=== PATIENT | male | born 1985 | race Caucasian/White ===

== ENCOUNTER 2016-05-25 19:28 | Emergency (ER) | payer OTHER ==
[2016-05-25] MEDS ORDERED: HYDROcodone/ACETAMIN 5-325 MG* 1 TAB PO ONE ×2 (20:16→20:48)
--- NOTE | 2016-05-25 20:17 | UC ---
Shoulder Pain HPI - HPI Summary HPI Summary: 30 yo male with right shoulder pain which started this afternoon slipped and fell landing of his right shoulder he is right handed - History of Current Complaint Chief Complaint: UCUpperExtremity Stated Complaint: RIGHT HIP/SHOULDER PAIN-FALL Time Seen by Provider: 05/25/16 20:10 Hx Obtained From: Patient Onset/Duration: Sudden Onset, Lasting Hours Timing: Constant Severity Initially: Severe Severity Currently: Severe Location Of Pain: Is Diffuse Pain Intensity: 9 Pain Scale Used: 0-10 Numeric Character: Aching, Throbbing Aggravating Factor(s): Movement, Lifting, Flexion, Extension, Internal Rotation , External Rotation, Abduction, Nothing Alleviating Factor(s): Rest Related History: Dominant Hand Right - Allergies/Home Medications Allergies/Adverse Reactions: Allergies Allergy/AdvReac Type Severity Reaction Status Date / Time Sulfa Drugs Allergy Severe Hives Verified 08/21/15 15:32 Home Medications: Home Medications Carisoprodol [Soma] 350 mg PO TID PRN 05/25/16 [History Confirmed 05/25/16] Diazepam TAB(*) [Valium TAB(*)] 10 mg PO QID 05/25/16 [History Confirmed ] Gabapentin CAP(*) [Neurontin 300 CAP(*)] 600 mg PO BID 05/25/16 [History Confirmed 05/25/16] Quetiapine Fumarate [Seroquel Xr] 600 mg PO BID 05/25/16 [History Confirmed ] PMH/Surg Hx/FS Hx/Imm Hx Previously Healthy: Yes - "FIBRO" Psychological History Of: Reports: Anxiety, Depression - Surgical History Surgical History: Yes Surgery Procedure, Year, and Place: L testicle surgery, [place] - Family History Known Family History: Positive: Cardiac Disease, Hypertension, Diabetes - Social History Alcohol Use: None Substance Use Type: None, Marijuana Substance Use Comment - Amount & Last Used: daily usage Smoking Status (MU): Heavy Every Day Tobacco Smoker Type: Cigarettes, Smokeless Tobacco Amount Used/How Often: 1/2 ppd Length of Time of Smoking/Using Tobacco: 15 yrs Cessation Counseling: Patient Advised to Stop Review of Systems Constitutional: Negative Skin: Negative Eyes: Negative ENT: Negative Respiratory: Negative Cardiovascular: Negative Gastrointestinal: Negative Genitourinary: Negative Motor: Negative Neurovascular: Negative Musculoskeletal: Arthralgia Neurological: Negative Psychological: Negative All Other Systems Reviewed And Are Negative: Yes Physical Exam Triage Information Reviewed: Yes Appearance: Well-Appearing, Well-Nourished, Pain Distress Vital Signs: Initial Vital Signs Temp 98.7 F 05/25/16 19:43 Pulse 114 05/25/16 19:43 Resp 16 05/25/16 19:43 BP 149/76 05/25/16 19:43 Pulse Ox 97 05/25/16 19:43 Vital Signs Reviewed: Yes Eyes: Positive: Conjunctiva Clear ENT: Positive: Hearing grossly normal. Negative: Nasal congestion, Nasal drainage, Trismus, Muffled/hoarse voice Neck: Positive: Supple, Nontender Respiratory: Positive: Lungs clear, Normal breath sounds, No respiratory distress, No accessory muscle use Cardiovascular: Positive: RRR, No Murmur, Tachycardia Bowel Sounds: Positive: Present Musculoskeletal: Positive: ROM Limited @ - right shoulder Neurological Exam: Normal Skin Exam: Normal Shoulder Course/Dx - Course Course Of Treatment: advised to get rechecked in case he has a partial rotator cuff tear - Differential Dx/Diagnosis Provider Diagnoses: right shoulder sprain Discharge - Discharge Plan Condition: Stable Disposition: HOME Prescriptions: Hydrocodone/Acetamin 10/325(NF [[place] 10/325 (NF)] 1 tab PO Q6H PRN #15 tab MDD 4 PRN Reason: Pain Patient Education Materials: Shoulder Pain (ED) Referrals: Jona Kulkarni MD [Primary Care Provider] - As Soon As Possible Additional Instructions: sling ice twice daily don't take narcotic and drive continue ibuprofen you BP was slightly elevated (probably due to pain) 149/76 Images Front/Back of Body, Lg (Weber): 1 - pain 2 - tender ac joint. pain with internal and external rotation and abduction
--- NOTE | 2016-05-25 20:48 | RAD ---
INDICATION: Right shoulder injury. TECHNIQUE: 3 views of the right shoulder were obtained. FINDINGS: The bones are in normal alignment. No fracture is seen. Joint spaces appear maintained. IMPRESSION: NO EVIDENCE OF FRACTURE.
[2016-05-25 21:11] VITALS: BP 124/94
== END 2016-05-25 21:11 | disposition home or self-care (01) ==
LOC: UCCORT 19:28
DX: S43.401A Unspecified sprain of right shoulder joint, initial encounter (principal); W01.0XXA Fall on same level from slipping, tripping and stumbling without subsequent striking against object, initial encounter; Y93.9 Activity, unspecified; Y92.9 Unspecified place or not applicable; Z88.2 Allergy status to sulfonamides; F12.90 Cannabis use, unspecified, uncomplicated; F17.210 Nicotine dependence, cigarettes, uncomplicated
CPT/HCPCS: 99213; G0463

== ENCOUNTER 2016-05-28 12:41 | Emergency (ER) | payer OTHER ==
[2016-05-28 13:09] VITALS: BP 128/74
--- NOTE | 2016-05-28 13:21 | UC ---
Shoulder Pain HPI - History of Current Complaint Chief Complaint: UCUpperExtremity Stated Complaint: RIGHT SHOULDER PAIN Time Seen by Provider: 05/28/16 13:09 Hx Obtained From: Patient Onset/Duration: Sudden Onset - Fell, landed on the right shoulder and the leg., Still Present Timing: Constant Severity Initially: Severe Severity Currently: Severe Location Of Pain: Is Discrete @ - the right shoulder cap radiating up into the neck. Character: Sharp, Burning Aggravating Factor(s): Movement, Lifting Alleviating Factor(s): Rest - with sling and pain meds. - Risk Factors Non-Orthopedic Risk Factor: Negative DVT Risk Factors: Smoking, Recent Trauma Septic Arthritis Risk Factor: Negative - Allergies/Home Medications Allergies/Adverse Reactions: Allergies Allergy/AdvReac Type Severity Reaction Status Date / Time Sulfa Drugs Allergy Severe Hives Verified 05/28/16 13:02 Home Medications: Home Medications Ibuprofen TAB* [Advil TAB*] 600 mg PO Q6H PRN 05/28/16 [History Confirmed ] PMH/Surg Hx/FS Hx/Imm Hx Psychological History Of: Reports: Anxiety, Depression, Bipolar Disorder - Surgical History Surgical History: Yes Surgery Procedure, Year, and Place: Appenectomy, 2014, [place]; Left Testicle Verocele, 2011, [place] - Family History Known Family History: Positive: Unknown, Cardiac Disease, Hypertension, Diabetes - Social History Occupation: Unemployed, Disabled Lives: With Family - with Girlfriend Alcohol Use: None Substance Use Type: Marijuana Substance Use Comment - Amount & Last Used: Nightly Smoking Status (MU): Heavy Every Day Tobacco Smoker Type: Cigarettes, Smokeless Tobacco Amount Used/How Often: 1/2 ppd Length of Time of Smoking/Using Tobacco: 15 yrs Review of Systems Musculoskeletal: Arthralgia Neurological: Paresthesia All Other Systems Reviewed And Are Negative: Yes Physical Exam Triage Information Reviewed: Yes Appearance: Well-Appearing, Well-Nourished, Pain Distress - with any right shoulder movement. Vital Signs: Initial Vital Signs Temp 98 F 05/28/16 12:59 Pulse 122 05/28/16 12:59 Resp 18 05/28/16 12:59 BP 128/74 05/28/16 12:59 Pulse Ox 98 05/28/16 12:59 Vital Signs Reviewed: Yes Eyes: Positive: Conjunctiva Clear Neck: Negative: Supple - pain with movement to the right Respiratory: Positive: Lungs clear Cardiovascular Exam: Normal Cardiovascular: Positive: Tachycardia Musculoskeletal: Positive: ROM Limited @ - Right shoulder, decreased flexion/ abduction. Tender over the AC joint. Neurological: Positive: Other: - pinprick increased in the C3 dermatome on the right Psychological: Positive: Other: - ? hypomanic. Skin Exam: Normal Shoulder Course/Dx - Differential Dx/Diagnosis Differential Diagnosis/HQI/PQRI: AC Separation, Sprain, Strain Provider Diagnoses: AC sprain. Cervical radiculopathy Discharge - Discharge Plan Condition: Stable Disposition: HOME Prescriptions: Gabapentin TAB(NF) [Neurontin 600 mg TAB(NF)] 600 mg PO TID #90 tab Hydrocodone/Acetamin 10/325(NF [[place] 10/325 (NF)] 1 tab PO Q6H PRN #15 tab MDD 4 PRN Reason: Pain Patient Education Materials: Acromioclavicular Separation (ED), Cervical Radiculopathy (ED), Gabapentin (By mouth), Ketorolac (By injection) Referrals: Jona Kulkarni MD [Primary Care Provider] - Luis Miguel Smith MD [Medical Doctor] - 2 Days (follow up on AC sprain and ? nerve injury.)
[2016-05-28] MEDS ORDERED: Ketorolac INJ* 60 MG/2 ML VIAL IM ONE (13:22)
[2016-05-28] MEDS ORDERED: Ketorolac INJ* 60 MG/2 ML VIAL ONE (13:24)
--- NOTE | 2016-05-28 13:54 | RAD ---
Indication: C3 radiculopathy. 5 views of the cervical spine demonstrates straightening of the normal lordosis. Disc spaces all well-preserved. Pedicles appear intact. IMPRESSION: Unremarkable cervical spine series.
== END 2016-05-28 14:12 | disposition home or self-care (01) ==
LOC: UCCORT 12:41
DX: S43.51XA Sprain of right acromioclavicular joint, initial encounter (principal); W19.XXXA Unspecified fall, initial encounter; Y93.9 Activity, unspecified; Y92.9 Unspecified place or not applicable; M54.12 Radiculopathy, cervical region; Z88.2 Allergy status to sulfonamides; F12.90 Cannabis use, unspecified, uncomplicated; F17.210 Nicotine dependence, cigarettes, uncomplicated
CPT/HCPCS: 72050; 96372; 99212; G0463; J1885

== ENCOUNTER 2016-07-03 15:26 | Emergency (ER) | payer OTHER ==
--- NOTE | 2016-07-03 15:58 | UC ---
UC General HPI - HPI Summary HPI Summary: complaint of fibromyalgia pain started approx 2-3 days ago following doing some housecleaning both are arms are very sore since flareup see Dr Kulkarni usually comes to urgent care for flareups taking gabapentin, ,soma for muscle spasms, without any relief taking ibuprofen 800 mg PO which he took 6 hours ago without relief denies numbness and tingling in BUE - History of Current Complaint Chief Complaint: UCUpperExtremity Stated Complaint: BILATERAL HAND SWELLING Time Seen by Provider: 07/03/16 15:49 Hx Obtained From: Patient - Allergy/Home Medications Allergies/Adverse Reactions: Allergies Allergy/AdvReac Type Severity Reaction Status Date / Time Sulfa Drugs Allergy Severe Hives Verified 07/03/16 15:48 PMH/Surg Hx/FS Hx/Imm Hx Previously Healthy: Yes Psychological History Of: Reports: Anxiety, Depression, Bipolar Disorder - Surgical History Surgical History: Yes Surgery Procedure, Year, and Place: Appenectomy, 2014, [place]; Left Testicle Verocele, 2011, [place] - Family History Known Family History: Positive: Unknown, Cardiac Disease, Hypertension, Diabetes - Social History Occupation: Disabled Lives: With Family Alcohol Use: None Substance Use Type: Marijuana Substance Use Comment - Amount & Last Used: Nightly Smoking Status (MU): Heavy Every Day Tobacco Smoker Type: Cigarettes, Smokeless Tobacco Amount Used/How Often: 1/2 ppd Length of Time of Smoking/Using Tobacco: 15 yrs Cessation Counseling: Patient Advised to Stop - Immunization History Most Recent Influenza Vaccination: 2017 Review of Systems Constitutional: Negative Skin: Negative Eyes: Negative ENT: Negative Respiratory: Negative Cardiovascular: Negative Gastrointestinal: Negative Genitourinary: Negative Motor: Negative Neurovascular: Negative Musculoskeletal: Other: - pain in both arms and hands Neurological: Negative Psychological: Negative All Other Systems Reviewed And Are Negative: Yes Physical Exam Triage Information Reviewed: Yes Appearance: No Pain Distress, Well-Nourished Vital Signs: Initial Vital Signs Temp 99.0 F 07/03/16 15:42 Pulse 123 07/03/16 15:42 Resp 18 07/03/16 15:42 BP 136/96 07/03/16 15:42 Pulse Ox 99 07/03/16 15:42 Vital Signs Reviewed: Yes Eyes: Positive: Conjunctiva Clear ENT: Positive: Pharynx normal, TMs normal. Negative: Nasal congestion Neck: Positive: No Lymphadenopathy Respiratory: Positive: Lungs clear, Normal breath sounds, No respiratory distress, No accessory muscle use Cardiovascular: Positive: RRR, No Murmur, Pulses Normal Abdomen Description: Positive: Nontender, Soft Bowel Sounds: Positive: Present Musculoskeletal: Positive: Strength Intact, No Edema Neurological: Positive: Alert, Muscle Tone Normal Psychological Exam: Normal Skin Exam: Normal Course/Dx - Course Course Of Treatment: exam completed- ISTOPchecked- last rx for limited vicodin . consistent use of ambien, valium and soma. discussed with Dr Bah giving some tramadol for temporary pain relief until he can contact Dr Kulkarni tomorrow. - Differential Dx - Multi-Symptom Provider Diagnoses: fibromyalgia - Physician Notifications Discussed Patient Care With: Dr Bah Time Discussed With Above Provider: 16:17 Discharge - Discharge Plan Condition: Stable Disposition: HOME Prescriptions: traMADol TAB* [Ultram*] 50 mg PO Q6HR PRN #8 tab MDD 4 PRN Reason: Pain Patient Education Materials: Fibromyalgia (ED) Referrals: Jona Kulkarni MD [Primary Care Provider] - Additional Instructions: Increase fluids and rest Take tramadol for pain relief Please review your discharge instructions. If your symptoms do not improve please call your primary care provider or return to urgent care. Your blood pressure is pre-hypertensive reading. Please contact your primary care provider within 1 day -4 weeks for further evaluation
[2016-07-03 16:11] VITALS: BP 136/96
[2016-07-03] MEDS ORDERED: Ketorolac INJ* 60 MG/2 ML VIAL IM ONE (16:13)
== END 2016-07-03 16:41 | disposition home or self-care (01) ==
LOC: UCCORT 15:26
DX: M79.7 Fibromyalgia (principal); F41.8 Other specified anxiety disorders; F31.9 Bipolar disorder, unspecified; Z88.2 Allergy status to sulfonamides; F12.90 Cannabis use, unspecified, uncomplicated; F17.210 Nicotine dependence, cigarettes, uncomplicated
CPT/HCPCS: 96372; 99212; G0463; J1885

== ENCOUNTER 2016-08-13 15:48 | Emergency (ER) | payer OTHER ==
[2016-08-13 16:32] VITALS: BP 126/82
--- NOTE | 2016-08-13 17:06 | UC ---
Back Pain HPI - HPI Summary HPI Summary: home painting his deck today and "knees buckled", reports is having pain in his "lumbar back, "it has happened before". States that he has fibromyalgia and see's Dr Kulkarni. Took soma this morning but ahsnt taken any ibuporfen or any other meds for it. his mom who has MS but lidocaine cream on it. Denies radiation into buttocks or legs. no w/n/t into legs. No saddle anesthesia. No loss of bowel or bladder. He asks for ibuprofen 800mgs. states he is not here to get pain meds. -His GF was here to be seen in a different room. - History of Current Complaint Chief Complaint: UCBackPain Stated Complaint: LOW BACK PAIN Time Seen by Provider: 08/13/16 17:00 - Allergies/Home Medications Allergies/Adverse Reactions: Allergies Allergy/AdvReac Type Severity Reaction Status Date / Time Sulfa Drugs Allergy Severe Hives Verified 08/13/16 16:32 Home Medications: Home Medications Gabapentin TAB(NF) [Neurontin 600 mg TAB(NF)] 600 mg PO BID 08/13/16 [History Confirmed 08/13/16] LORazepam TAB(*) [Ativan 0.5 MG TAB (*)] 0.5 mg PO TID PRN 08/13/16 [History Confirmed 08/13/16] QUEtiapine TAB* [SEROquel TAB*] 50 mg PO DAILY PRN 08/13/16 [History Confirmed 08/13/16] PMH/Surg Hx/FS Hx/Imm Hx Previously Healthy: Yes GI/ History: Other - rececnt completion of 12 wk Hep C treatment Other GI/ History: recent completion Hep C treatment, resolved LFTs he reports. Denies PUD/CKD - Surgical History Surgical History: Yes Surgery Procedure, Year, and Place: Appenectomy, 2015, [place]; Left Testicle Verocele, 2012, [place] - Family History Known Family History: Positive: Unknown, Cardiac Disease, Hypertension, Diabetes - Social History Alcohol Use: Rare Substance Use Type: Marijuana Substance Use Comment - Amount & Last Used: Nightly Smoking Status (MU): Heavy Every Day Tobacco Smoker Type: Cigarettes, Smokeless Tobacco Amount Used/How Often: 1/2 ppd Length of Time of Smoking/Using Tobacco: 15 yrs - Immunization History Most Recent Influenza Vaccination: 2016 Review of Systems Constitutional: Negative Skin: Negative Eyes: Negative ENT: Negative Respiratory: Negative Cardiovascular: Negative Gastrointestinal: Negative Genitourinary: Negative Motor: Decreased ROM, Other - pain and stiffness in low back. Neurovascular: Negative Musculoskeletal: Negative Neurological: Negative Psychological: Negative All Other Systems Reviewed And Are Negative: Yes Physical Exam Triage Information Reviewed: Yes Appearance: Well-Nourished, Pain Distress Vital Signs: Initial Vital Signs Temp 98.6 F 08/13/16 16:26 Pulse 102 08/13/16 16:26 Resp 17 08/13/16 16:26 BP 126/82 08/13/16 16:26 Pulse Ox 99 08/13/16 16:26 Vital Signs Reviewed: Yes Eye Exam: Normal ENT Exam: Normal Neck exam: Normal Neck: Positive: Supple, Nontender, No Lymphadenopathy Respiratory Exam: Normal Respiratory: Positive: Lungs clear, Normal breath sounds Cardiovascular Exam: Normal Cardiovascular: Positive: RRR, No Murmur, Pulses Normal Abdominal Exam: Normal Musculoskeletal: Positive: No Edema, ROM Limited @ - lubar spine with flexion, extension and b/l rotation., Other: - mild tenderness b/l lumbar areas. no tenderness along lumbar spine. SLR neg b/l. + 1 patellar equal and symmetrical b /l legs. Psychological Exam: Normal Skin Exam: Normal Back Pain Course/Dx - Course Course Of Treatment: B/L low back muscle spasms. ISTOP done and cc'd to chart. tramadol given 06/27. uses some and diazepam, zolpidem and ativan regular fills. - Differential Dx/Diagnosis Differential Diagnosis/HQI/PQRI: Herniated Disc, Strain, Sprain Provider Diagnoses: B/L lumbar strain Discharge - Discharge Plan Condition: Stable Disposition: HOME Prescriptions: Ibuprofen TAB* [Motrin TAB* 600 MG] 600 mg PO Q8H PRN #10 tab PRN Reason: Pain Patient Education Materials: Muscle Strain (ED) Referrals: Jona Kulkarni MD [Primary Care Provider] - 2 Days Additional Instructions: Make sure to get rest and ice your back, 20 mins on/off with a towel barrier between the ice and your skin.
[2016-08-13] MEDS ORDERED: Ibuprofen TAB* 600 MG PO ONE (17:15)
== END 2016-08-13 17:42 | disposition home or self-care (01) ==
LOC: UCCORT 15:48
DX: S39.012A Strain of muscle, fascia and tendon of lower back, initial encounter (principal); X58.XXXA Exposure to other specified factors, initial encounter; Y93.89 Activity, other specified; Y92.009 Unspecified place in unspecified non-institutional (private) residence as the place of occurrence of the external cause; Z88.2 Allergy status to sulfonamides; F17.210 Nicotine dependence, cigarettes, uncomplicated
CPT/HCPCS: 99212; A9270-GY; G0463

== ENCOUNTER 2016-08-23 12:26 | Emergency (ER) | payer OTHER ==
[2016-08-23] MEDS ORDERED: Ibuprofen TAB* 400 MG PO ONE (12:54)
--- NOTE | 2016-08-23 13:02 | UC ---
Dental HPI - HPI Summary HPI Summary: Patient has had dental pain for the last 3 days, poor dentition and fractured teeth - History of Current Complaint Stated Complaint: DENTAL COMPLAINT Time Seen by Provider: 08/23/16 12:40 Hx Obtained From: Patient Onset/Duration: Sudden Onset, Lasting Days Severity: Severe Aggravating: Chewing Alleviating: Nothing Related History: Previous Dental Care on Same Tooth, Swelling - Allergies/Home Medications Allergies/Adverse Reactions: Allergies Allergy/AdvReac Type Severity Reaction Status Date / Time Sulfa Drugs Allergy Severe Hives Verified 08/13/16 16:32 PMH/Surg Hx/FS Hx/Imm Hx Previously Healthy: Yes - Surgical History Surgical History: Yes Surgery Procedure, Year, and Place: Appenectomy, 2014, [place]; Left Testicle Verocele, 2012, [place] - Family History Known Family History: Positive: Unknown, Cardiac Disease, Hypertension, Diabetes - Social History Alcohol Use: Rare Substance Use Type: Marijuana Substance Use Comment - Amount & Last Used: Nightly Smoking Status (MU): Heavy Every Day Tobacco Smoker Type: Cigarettes, Smokeless Tobacco Amount Used/How Often: 1/2 ppd Length of Time of Smoking/Using Tobacco: 15 yrs - Immunization History Most Recent Influenza Vaccination: 2017 Review of Systems Constitutional: Negative Skin: Negative Eyes: Negative ENT: Dental Pain, Ear Ache Respiratory: Negative Cardiovascular: Negative Gastrointestinal: Negative Genitourinary: Negative Motor: Negative Neurovascular: Negative Musculoskeletal: Negative Neurological: Negative Psychological: Negative All Other Systems Reviewed And Are Negative: Yes Physical Exam Triage Information Reviewed: Yes Appearance: Well-Nourished, Ill-Appearing, Pain Distress Vital Signs Reviewed: Yes Eye Exam: Normal ENT: Positive: TM bulging Dental: Positive: Gross Decay/Caries @, Dental Fracture @, Cellulitis @, Cervical Lymphadenopathy Neck exam: Normal Neck: Positive: Supple, Nontender, Enlarged Nodes @ - right cervical and sumbandibular Respiratory Exam: Normal Respiratory: Positive: Chest non-tender, Lungs clear, Normal breath sounds Cardiovascular Exam: Normal Abdominal Exam: Normal Bowel Sounds: Positive: Present Musculoskeletal Exam: Normal Neurological Exam: Normal Psychological Exam: Normal Skin Exam: Normal Dental Complaint Course/Dx - Course Course Of Treatment: hx obtained, exam performed ,meds reviewed, treated for dental infection and pain, he does have an upcoming dental appointment - Differential Dx/Diagnosis Provider Diagnoses: dental caries. lymphadenopathy. dental infection Discharge - Discharge Plan Condition: Stable Disposition: HOME Prescriptions: Amoxicillin/Clavulanate TAB* [Augmentin TAB 875*] 875 mg PO BID #20 tab Ibuprofen TAB* [Motrin TAB* 800 MG] 800 mg PO Q6H #28 tab traMADol TAB* [Ultram*] 50 mg PO Q12H PRN #6 tab MDD 2 tabs PRN Reason: Pain Patient Education Materials: Dental Abscess (ED) Additional Instructions: 1. take the medication as prescribed. 2. Increase your fluid intake and continue with your mouth rinses. 3. Follow up with your dentist at your upcoming appointment.
[2016-08-23] MEDS ORDERED: Naproxen TAB* 250 MG PO ONE (13:08)
[2016-08-23 13:29] VITALS: BP 125/88
== END 2016-08-23 13:44 | disposition home or self-care (01) ==
LOC: UCCORT 12:26
DX: K02.9 Dental caries, unspecified (principal); K04.7 Periapical abscess without sinus; R59.1 Generalized enlarged lymph nodes; Z88.2 Allergy status to sulfonamides; F17.210 Nicotine dependence, cigarettes, uncomplicated
CPT/HCPCS: 99212; A9270-GY; G0463

== ENCOUNTER 2016-09-23 11:05 | Emergency (ER) | payer OTHER ==
--- NOTE | 2016-09-23 11:09 | UC ---
Throat Pain/Nasal Zaid HPI - HPI Summary HPI Summary: 30 YEAR OLD MALE PRESENTS WITH COMPLAINS OF SORE THROAT AND SWOLLEN GLANDS. - History of Current Complaint Stated Complaint: SORE THROAT Time Seen by Provider: 09/23/16 11:09 - Allergies/Home Medications Allergies/Adverse Reactions: Allergies Allergy/AdvReac Type Severity Reaction Status Date / Time Sulfa Drugs Allergy Severe Hives Verified 09/23/16 11:11 Home Medications: Home Medications clonazePAM TAB(*) [Klonopin TAB(*)] 0.5 mg PO TID 09/23/16 [History Confirmed ] PMH/Surg Hx/FS Hx/Imm Hx - Surgical History Surgical History: Yes Surgery Procedure, Year, and Place: Appenectomy, 2014, [place]; Left Testicle Verocele, 2011, [place] - Family History Known Family History: Positive: Unknown, Cardiac Disease, Hypertension, Diabetes - Social History Alcohol Use: Rare Substance Use Type: Marijuana Substance Use Comment - Amount & Last Used: Nightly Smoking Status (MU): Heavy Every Day Tobacco Smoker Type: Cigarettes, Smokeless Tobacco Amount Used/How Often: 1/2 ppd Length of Time of Smoking/Using Tobacco: 15 yrs Household Exposure Type: Cigarettes - Immunization History Most Recent Influenza Vaccination: 2017 Review of Systems Constitutional: Negative Skin: Negative Eyes: Negative ENT: Sore Throat, Nasal Discharge, Sinus Congestion, Sinus Pain/Tenderness Respiratory: Negative Cardiovascular: Negative Gastrointestinal: Negative Genitourinary: Negative Motor: Negative Neurovascular: Negative Musculoskeletal: Negative Neurological: Negative Psychological: Negative All Other Systems Reviewed And Are Negative: Yes Physical Exam Triage Information Reviewed: Yes Eye Exam: Normal ENT Exam: Normal ENT: Positive: Pharyngeal erythema, Nasal congestion, Tonsillar swelling Dental Exam: Normal Neck exam: Normal Neck: Positive: 1 Respiratory Exam: Normal Cardiovascular Exam: Normal Abdominal Exam: Normal Musculoskeletal Exam: Normal Neurological Exam: Normal Psychological Exam: Normal Skin Exam: Normal Throat Pain/Nasal Course/Dx - Differential Dx/Diagnosis Provider Diagnoses: PHARYNGITIS Discharge - Discharge Plan Condition: Stable Disposition: HOME Prescriptions: Amoxicillin PO (*) [Amoxicillin 875 MG (*)] 875 mg PO BID #30 tab LoraTADine TAB(NF) [Claritin 10 MG TAB(NF)] 10 mg PO DAILY #30 tab Magic M W2 Bill/Maal/Nyst/Lido* 15 ml SWISH SPIT QID #120 ml Patient Education Materials: Pharyngitis (ED) Referrals: Jona Kulkarni MD [Primary Care Provider] - If Needed
[2016-09-23 11:11] VITALS: BP 122/82
== END 2016-09-23 11:34 | disposition home or self-care (01) ==
LOC: UCCORT 11:05
DX: J02.9 Acute pharyngitis, unspecified (principal); F17.210 Nicotine dependence, cigarettes, uncomplicated; Z88.2 Allergy status to sulfonamides
CPT/HCPCS: 87651; 99212; G0463

== ENCOUNTER 2017-06-08 08:48 | Emergency (ER) | payer OTHER ==
[2017-06-08 09:43] VITALS: BP 144/95
[2017-06-08] MEDS ORDERED: Ketorolac INJ* 60 MG/2 ML VIAL IM ONE (10:47)
--- NOTE | 2017-06-08 10:50 | UC ---
Upper Extremity HPI - HPI Summary HPI Summary: 31 now presents the convenient care with complaint of right wrist pain and swelling that began weeks ago. States it's been getting worse over the past week. States he hears and feels a crackling when flexing and extending his wrist. Took some hydrocortisone today with relief. States ibuprofen he took yesterday her milligrams on 6 PM was more helpful. 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 He is right-hand dominant no other complaints. States he has had issues with the same wrist in the past however have never gotten this bad. Denies any numbness and tingling. Denies any redness and warmth - History of Current Complaint Chief Complaint: UCUpperExtremity Stated Complaint: RT WRIST/FOREARM COMPLAINT Time Seen by Provider: 06/08/17 10:27 Hx Obtained From: Patient ?: No Onset/Duration: Sudden Onset, Lasting Weeks - 1, Still Present, Worse Since Severity Initially: Mild Severity Currently: Moderate Pain Intensity: 7 Pain Scale Used: 0-10 Numeric Location Of Pain: Is Discrete @ - Right wrist Character: Aching Aggravating Factor(s): Movement Alleviating Factor(s): OTC Meds, Rest Associated Signs And Symptoms: Positive: Swelling. Negative: Redness, Bruising , Weakness, Numbness/Tingling Related History: Dominant Hand Right - Allergies/Home Medications Allergies/Adverse Reactions: Allergies Allergy/AdvReac Type Severity Reaction Status Date / Time Sulfa (Sulfonamide Allergy Severe Hives Verified 06/08/17 09:29 Antibiotics) Home Medications: Home Medications Hydrocodone/Acetaminophen [Hydrocodone Bitartrate/AC] 1 tab PO Q6H PRN 06/08/17 [History Confirmed 06/08/17] Ibuprofen TAB* [Motrin TAB* 800 MG] 800 mg PO Q6H PRN 06/08/17 [History Confirmed 06/08/17] PMH/Surg Hx/FS Hx/Imm Hx - Additional Past Medical History Additional PMH: Denies past medical history other than bipolar Psychological History: Bipolar Disorder - Surgical History Surgical History: Yes Surgery Procedure, Year, and Place: Appenectomy, 2014, [place]; Left Testicle Verocele, 2011, [place]. CYST REMOVED FROM EYE A CHILD - Family History Known Family History: Positive: Unknown, Cardiac Disease, Hypertension, Diabetes - Social History Alcohol Use: Rare Substance Use Type: Marijuana Substance Use Comment - Amount & Last Used: DAILY Smoking Status (MU): Heavy Every Day Tobacco Smoker Type: Cigarettes, Smokeless Tobacco Amount Used/How Often: 3/4 PPD Length of Time of Smoking/Using Tobacco: 15 yrs Household Exposure Type: Cigarettes - Immunization History Most Recent Influenza Vaccination: 2017 Review of Systems Constitutional: Negative Respiratory: Negative Cardiovascular: Negative Musculoskeletal: Arthralgia, Myalgia Neurological: Negative All Other Systems Reviewed And Are Negative: Yes Physical Exam Triage Information Reviewed: Yes Appearance: Well-Appearing, Well-Nourished, Pain Distress - Mild Vital Signs: Initial Vital Signs Temp 98.9 F 06/08/17 09:35 Pulse 97 06/08/17 09:35 Resp 18 06/08/17 09:35 BP 144/95 06/08/17 09:35 Pulse Ox 98 06/08/17 09:35 Vital Signs Reviewed: Yes Eyes: Positive: Conjunctiva Clear Neck: Positive: Supple Respiratory: Positive: Chest non-tender, Lungs clear, Normal breath sounds Cardiovascular: Positive: RRR, No Murmur, Pulses Normal - 2+ Musculoskeletal: Positive: Strength Intact, ROM Intact, Edema @ - Mild swelling over the wrist and hand right side, Other: - Does have full range of motion and strength is intact however is painful. when moving can feel tendons not sliding smoothly diffusely Neurological Exam: Normal Neurological: Positive: Alert Skin Exam: Normal Upper Extremity Course/Dx - Course Course Of Treatment: Given Toradol while in the urgent care. Applied Eber wrap and cock-up splint. Recommended rice. Follow-up with [facility] in 2 days. Avoid overuse. However since then his symptoms watch out for. No other complaints or concerns at this time. Continue ibuprofen at home as prescribed. Starting tomorrow. Appears to be suffering from a tenosynovitis due to overuse versus tendinitis. - Differential Dx/Diagnosis Differential Diagnosis/HQI/PQRI: Other - Tendinitis, tenosynovitis, wrist pain Provider Diagnoses: tendonitis/tenosynovitis, wrist pain Discharge - Sign-Out/Discharge Documenting (check all that apply): Discharge - Discharge Plan Condition: Good Disposition: HOME Prescriptions: Ibuprofen TAB* [Motrin TAB* 600 MG] 600 mg PO Q6H PRN #30 tab PRN Reason: Pain Patient Education Materials: Tenosynovitis (ED), Tendinitis (ED) Referrals: Jona Kulkarni MD [Primary Care Provider] - Luis Miguel Smith MD [Medical Doctor] - 2 Days Additional Instructions: Take prescribed ibuprofen as directed, with food beginning tomorrow morning, as you already had today's max dose. Take already previously prescribed pain medication only as needed for breakthrough pain. Rest, avoid use and apply compression with eber wrap/brace. Ice for the next 2 days, then heat during day, ice at night for the following days. Any new or worsening symptoms please seek medical attention immediately and go to ER as we discussed. Follow up with Orthopedics in the next 2 days. - Billing Disposition and Condition Condition: GOOD Disposition: HOME
== END 2017-06-08 11:21 | disposition home or self-care (01) ==
LOC: UCCORT 08:48
DX: M77.9 Enthesopathy, unspecified (principal); M65.9 Synovitis and tenosynovitis, unspecified; F17.210 Nicotine dependence, cigarettes, uncomplicated; F17.290 Nicotine dependence, other tobacco product, uncomplicated; Z88.2 Allergy status to sulfonamides
CPT/HCPCS: 96372; 99213; G0463; J1885

== ENCOUNTER 2019-04-23 13:58 | Emergency (ER) | payer MEDICAID, OTHER ==
[2019-04-23 14:19] VITALS: BP 147/82
--- NOTE | 2019-04-23 14:44 | UC ---
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 States he saw PCP last week for labwork to check pancrease which came back 'normal'. Has GI follow-up. Taking ibuprofen 800mg prn. 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 Vomit sx improved but worsened again approx 2 mo ago. Followed by PCP, had blood work last week, which he says included normal pancreas level. Hx hep c, but reports well controlled. Has been having pain in legs and both arms, which radiate to shoulder, increasing 2 years. Strong fam hx various ca (GM, GF, father). mom with thyroid issues. 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 Reports was told in the distant past he might have fibromyalgia, but doesn't think this is the case nor etiology. No sx. Does take miralax regularly (d/t suboxone) but no change in BM, nor recent melena / brbpr. No rash. - History of Current Complaint Chief Complaint: UCGeneralIllness Stated Complaint: EATIN CONCERNS/CHEST/BONE PAIN Time Seen by Provider: 04/23/19 14:43 Hx Obtained From: Patient Pain Intensity: 6 - Allergy/Home Medications Allergies/Adverse Reactions: Allergies Allergy/AdvReac Type Severity Reaction Status Date / Time Sulfa (Sulfonamide Allergy Severe Hives Verified 04/23/19 14:11 Antibiotics) codeine Allergy GI Upset Verified 04/23/19 14:12 Home Medications: Home Medications Buprenorphine HCl/Naloxone HCl [Suboxone 12 mg-3 mg Sl Film] 1 tab BID 04/23/19 [History Confirmed 04/23/19] Pancrelipase (NF) [Creon (NF)] 1 cap TID AC 04/23/19 [History Confirmed 04/23/19 ] PMH/Surg Hx/FS Hx/Imm Hx Previously Healthy: No - see below and hpi - Surgical History Surgical History: Yes Surgery Procedure, Year, and Place: Appenectomy, 2014, [place]; Left Testicle Verocele, 2011, [place]. 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" Smoking Status (MU): Heavy Every Day Tobacco Smoker Type: Cigarettes, Smokeless Tobacco Amount Used/How Often: 1 PPD Length of Time of Smoking/Using Tobacco: 15 yrs Household Exposure Type: Cigarettes - Immunization History Most Recent Influenza Vaccination: 2017 Review of Systems All Other Systems Reviewed And Are Negative: Yes Constitutional: Positive: Other - see hpi Skin: Positive: Other - see hpi Eyes: Positive: Other - see hpi ENT: Positive: Other - see hpi Respiratory: Positive: Other Cardiovascular: Positive: Other - see hpi Gastrointestinal: Positive: Other - see hpi Genitourinary: Positive: Other - see hpi Motor: Positive: Other - see hpi Neurovascular: Positive: Other - see hpi Musculoskeletal: Positive: Other: - see hpi Neurological/Mental Status: Positive: Other - see hpi Psychological: Positive: Negative Is Patient Immunocompromised?: No Physical Exam Triage Information Reviewed: Yes Appearance: Well-Nourished - sitting up, conversing easily. looks concerned and tired, but nad Vital Signs: Initial Vital Signs Temp 97.8 F 04/23/19 14:13 Pulse 88 04/23/19 14:13 Resp 16 04/23/19 14:13 BP 147/82 04/23/19 14:13 Pulse Ox 99 04/23/19 14:13 Vital Signs Reviewed: Yes Eye Exam: Normal ENT Exam: Normal ENT: Positive: Pharyngeal erythema - mild post pharynx redness, no sores, TM dull - au, Uvula midline Neck exam: Normal Neck: Positive: Supple, Nontender, No Lymphadenopathy Respiratory Exam: Other - mild wheeze R base, full bs bilat Respiratory: Positive: No respiratory distress, No accessory muscle use Cardiovascular Exam: Normal Cardiovascular: Positive: RRR, No Murmur, Pulses Normal, Brisk Capillary Refill Abdominal Exam: Other - + subj discomfort no currrent cvat (although reports hx back pain on occasion) Abdomen Description: Positive: No Organomegaly - no hsm Musculoskeletal Exam: Normal Musculoskeletal: Positive: Strength Intact Neurological Exam: Normal Neurological: Positive: Alert - nonfocal Psychological Exam: Normal - nad Psychological: Positive: Normal Response To Family Skin Exam: Normal - no visible or reported rash nondiaphoretic Course/Dx - Course Course Of Treatment: Reviewed cxr report with pt encouraged stop smoking will start albuterol Blood work ordered, he is scheduling f/u with pcp (as planned). Aware to go to the ED if worse or new issues. Reviewed coa / tx plan (essentially close f/u, blood work, f/u pcp, to ED if worse, minimize ibuprofen). Questions as posed answered to the best of my ability. Addm - unable to draw blood, despite several skilled RN attempts. Mr. Hillman will f/u with pcp as planned. Blood tests per discretion pcp. - Diagnoses Provider Diagnosis: Abdominal pain, Wheeze, Arthralgia Discharge ED - Sign-Out/Discharge Documenting (check all that apply): Patient Departure All imaging exams completed and their final reports reviewed: Yes - Discharge Plan Condition: Stable Disposition: HOME Prescriptions: Albuterol HFA INHALER* [Ventolin HFA Inhaler*] 1 - 2 puff INH Q4H PRN #1 mdi PRN Reason: Wheezing Patient Education Materials: How to Stop Smoking (ED), Arthralgia (ED), Wheezing (ED), Chronic Abdominal Pain (ED) Referrals: Pastor Rao MD [Primary Care Provider] - Additional Instructions: Blood work sent. See attached. Follow up with your primary care physician as planned, this week if possible. Please go to the ED if worse or new problems. Minimize ibuprofen. Hydrate. - Billing Disposition and Condition Condition: STABLE Disposition: Home
== END 2019-04-23 16:09 | disposition home or self-care (01) ==
LOC: UCCORT 13:58
DX: R10.9 Unspecified abdominal pain (principal); R06.2 Wheezing; M25.542 Pain in joints of left hand; M25.552 Pain in left hip; M25.551 Pain in right hip; F17.210 Nicotine dependence, cigarettes, uncomplicated; Z88.2 Allergy status to sulfonamides; Z88.5 Allergy status to narcotic agent
CPT/HCPCS: 71046; 99212; G0463